=== PATIENT | female | born 1960 | race Two or more races ===

== ENCOUNTER 2019-04-21 08:51 | Outpatient (CLI) | payer OTHER ==
[~2019-04-21 08:51] MED LIST: FIORICET TABLET1 TAB; NEURONTIN300 MG; NORFLEX100 MG; ULTRACET
== END 2019-04-21 09:03 | disposition home or self-care (01) ==
LOC: NUCLEAR 08:51
DX: I31.3 Pericardial effusion (noninflammatory) (principal)